=== PATIENT | female | born 1985 | race Caucasian/White ===

== ENCOUNTER 2022-08-01 16:25 | Emergency (ER) | payer OTHER ==
[~2022-08-01] VITALS: Ht 162.6 cm; Wt 66.7 kg
[2022-08-01] MEDS ORDERED: IPRATROPIUM 0.5MG/ALBUTEROL 2.5MG INH SOL UD 3ML (DUONEB) NEB ONE (17:40)
[2022-08-01] MEDS ORDERED: VENTAER INH (18:21)
[2022-08-01] MEDS ORDERED: BENZ200C70 PO (18:21)
[2022-08-01 18:34] VITALS: BP 118/63
== END 2022-08-01 18:37 | disposition home or self-care (01) ==
LOC: M ED 16:25
DX: J06.9 Acute upper respiratory infection, unspecified (principal); B34.9 Viral infection, unspecified; F17.200 Nicotine dependence, unspecified, uncomplicated; Z79.51 Long term (current) use of inhaled steroids; Z79.899 Other long term (current) drug therapy
CPT/HCPCS: 71046; 94640; 99283; J1100